=== PATIENT | male | born 1970 | race Caucasian/White ===

== ENCOUNTER 2017-01-01 20:17 | Emergency (ER) | payer BC ==
[~2017-01-01] VITALS: Ht 170.2 cm; Wt 117.9 kg
[~2017-01-01 20:17] MED LIST: ASPIRIN81 MG PO; LISINOPRIL10 MG PO; VITAMIN B122500 MCG
== END 2017-01-01 22:39 | disposition home or self-care (01) ==
LOC: SED 20:17
DX: L02.213 Cutaneous abscess of chest wall (principal); L72.3 Sebaceous cyst; I10 Essential (primary) hypertension; Z79.899 Other long term (current) drug therapy
CPT/HCPCS: 10060; 99282

== ENCOUNTER 2017-01-03 06:38 | Emergency (ER) | payer BC ==
[~2017-01-03] VITALS: Ht 170.2 cm; Wt 117.9 kg
== END 2017-01-03 07:13 | disposition home or self-care (01) ==
LOC: SED 06:38
DX: Z48.01 Encounter for change or removal of surgical wound dressing (principal)
CPT/HCPCS: 99282